=== PATIENT | female | born 1975 | race Caucasian/White ===

== ENCOUNTER 2022-05-11 15:33 | Emergency (ER) | payer OTHER, SELFPAY ==
[2022-05-11 15:44] VITALS: BP 159/89; PULSE 93; RESP 20; TEMP 37.7; O2SAT 95; BMI 36.5
--- NOTE | 2022-05-11 16:40 | ED_ITS ---
HPI - General Adult General Chief complaint: Back Injury/Pain Stated complaint: BACK PAIN - BACK LEFT AREA Time Seen by Provider: 05/11/22 16:18 Source: patient Mode of arrival: ambulatory Limitations: no limitations History of Present Illness HPI narrative: 46-year-old female coming in today complaining of left-sided mid back pain that started yesterday. She states that the pain came out of nowhere. Does not r adiate. It is worse with movement. She states that when the pain comes it causes her to feel nauseated but she has not vomited. She denies any fevers or chills. Appetite has been normal. She denies any increased urinary frequency or dysuria. No urinary urgency. She denies any constipation or diarrhea, states that she has daily bowel movements and they have been regular. She denies any blood in her urine. The pain does not radiate. Lying still does make it better however she still gets spasms that come and go. She was seen in the [place] [facility] this morning and was given hydrocodone which she states has not helped the pain whatsoever. She denies coughing or feeling short of breath. She denies the pain worsening with leaning over forward or backwards. Related Data Home Medications Medication Instructions Recorded Confirmed hydroxychloroquine PO 05/11/22 Previous Rx's Medication Instructions Recorded cyclobenzaprine 10 mg tablet 10 mg PO Q8H PRN muscle spasm #15 05/11/22 tabs ketorolac 10 mg tablet 10 mg PO TID 5 days #15 tabs 05/11/22 Allergies Allergy/AdvReac Type Severity Reaction Status Date / Time No Known Drug Allergies Allergy Verified 05/11/22 15:49 Review of Systems Status of ROS: Reports: 10 or more systems reviewed and unremarkable except as noted in History and below Exam Narrative: Exam Narrative: Well-nourished well-developed patient in no acute distress but is uncomfortable. Alert and oriented. Answers questions appropriately. Mood and affect are appropriate. Thoughts are goal oriented and rational. No tangential or magical thinking noted. Patient speaks in full sentences without needing to catch their breath. HEENT: Normocephalic atraumatic. Pupils are equally round reactive to light. Extraocular muscles are intact. Conjunctivae are moist without any icterus noted. Moist mucous membranes. Posterior pharynx is normal. Neck is soft without any lymphadenopathy or thyromegaly. No masses are appreciated. Cardiovascular: Heart is regular rate and rhythm S1 and S2 are present without any murmurs. Lungs: Clear to auscultation bilaterally no wheezes rhonchi or rales are appreciated. Patient takes deep breaths without any discomfort. Abdomen: Soft and nontender nondistended with normal bowel sounds. No guarding or rebound. No masses or organomegaly appreciated. She has no CVA tenderness. Extremities: Bilateral lower extremities are without edema. Normal DP and PT pulses. Skin: Well perfused without any obvious rashes. Back: Has normal appearance. There are no rashes, erythema or bruising noted. She has no tenderness to palpation over the cervical thoracic or lumbar spine. There is no point tenderness over the posterior chest wall over any rib. She has a small area tenderness on the left thoracic paraspinal musculature, this seems to be her most tender spot. Strength is 5/5 of the upper and lower extremities. Gait is normal. Const: Vital Signs, click to edit/add: Vital Signs - 24 hr 05/11/22 15:44 Temperature 99.9 F H Pulse Rate [Right Pulse Oximeter] 93 Respiratory Rate 20 Blood Pressure [Le ft Upper Arm] 159/89 H Pulse Oximetry 95 Oxygen Delivery Me thod Room Air Course Course Hospital Course: Labs were unremarkable, urinalysis unremarkable. IM Toradol helped her symptoms quite a bit. Vital Signs Vital signs: Initial Vital Signs Temperature 99.9 F H 05/11/22 15:44 Temperature Source Temporal Artery Scan 05/11/22 15:44 Pulse Rate 93 05/11/22 15:44 Respiratory Rate 20 05/11/22 15:44 Blood Pressure 159/89 H 05/11/22 15:44 Blood Pressure Mean 112 05/11/22 15:44 Blood Pressure Position Sitting 05/11/22 15:44 Pulse Oximetry 95 05/11/22 15:44 Oxygen Delivery Method 05/11/22 15:44 Vital Signs Temperature 99.9 F H 05/11/22 15:44 Pulse Rate 93 05/11/22 15:44 Respiratory Rate 20 05/11/22 15:44 Blood Pressure 159/89 H 05/11/22 15:44 Pulse Oximetry 95 05/11/22 15:44 Oxygen Delivery Method 05/11/22 15:44 Temperature 99.9 F H 05/11/22 15:44 Pulse Rate 93 05/11/22 15:44 Respiratory Rate 20 05/11/22 15:44 Blood Pressure 159/89 H 05/11/22 15:44 Pulse Oximetry 95 05/11/22 15:44 Oxygen Delivery Method 05/11/22 15:44 Medical Decision Making MDM Narrative Medical decision making narrative: 46-year-old female coming in today with thoracic back pain. This is likely musculoskeletal in nature. Differential diagnoses includes kidney stones, ho wever she has a normal UA and no urinary symptoms. Could also potentially be a pulmonary source such as pleurisy, PE or pneumothorax-however, without any respiratory symptoms, no tachypnea or hypoxia this would be very unlikely. At this time to treat with Toradol and Flexeril as needed we discussed returning if she develops vomiting, fever or worsening symptoms. Patient felt comfortable with this plan had no other questions. Lab Data Lab results reviewed: Yes I reviewed the patient's lab results Labs: Lab Results 05/11/22 05/11/22 05/11/22 Range/Units 16:35 16:46 16:46 WBC 11.73 H (4.50-11.00) K/uL RBC 4.28 (4.00-5.20) m/uL Hgb 13.2 (12.0-16.0) gm/dL Hct 38.9 (33.0-51.0) % MCV 91 (80-100) fL MCH 31 (26-34) pg MCHC 34 (32-36) gm/dL RDW Coeff of Tiffanie 12.5 (11.5-15.5) % Plt Count 226 (140-440) K/uL Neut % (Auto) 80.4 H (42.0-72.0) % Lymph % (Auto) 8.1 L (20-44) % Bucks % (Auto) 10.7 (0.0-11.0) % Eos % (Auto) 0.3 (0.0-7.0) % Baso % (Auto) 0.2 (0.0-3.0) % Neut # (Auto) 9.40 H (1.7-7.0) K/uL Lymph # (Auto) 1.00 (0.90-2.90) K/uL Bucks # (Auto) 1.30 H (0.00-0.90) K/UL Eos # (Auto) 0.00 (0.00-0.50) K/uL Baso # (Auto) 0.00 (0.00-0.30) K/uL Abs Immat Gran (auto) 0.03 (0.00-0.30) K/uL Sodium 137 (135-149) mmol/L Potassium 4.0 (3.6-5.1) mmol/L Chloride 102 (96-114) mmol/L Carbon Dioxide 26 (20-32) mmol/L BUN 12 (5-24) mg/dL Creatinine 0.7 (0.5-1.5) mg/dL Estimated Creat Clear 102.38 Estimated GFR 109 ml/min Glucose 120 H (60-115) mg/dL Calcium 9.6 (8.4-10.6) mg/dL Urine Color Yellow (Yellow) Urine Appearance Clear (Clear) Urine pH 6.0 (5.0-8.5) Ur Specific [place] >= 1.030 (1.000-1.030) Urine Protein Negative (Negative) Urine Glucose (UA) Negative (Negative) Urine Ketones Negative (Negative) Urine Blood Negative (Negative) Urine Nitrite Negative (Negative) Urine Bilirubin Negative (Negative) Urine Urobilinogen 0.2 (0.2-1.0) Ur Leukocyte Esterase Negative (Negative) Urine RBC 0-2 (0-2) Urine WBC 0-2 (0-5) Ur Squamous Epith Cells None (None-Few) Urine Bacteria None (None) Discharge Plan Discharge Clinical Impression: Thoracic back pain Patient Disposition: Home, Self-Care Condition: Stable Additional Instructions: Okay to use heat on sore area as needed. Take Toradol which is a pain medication, and Flexeril which is a muscle relaxer as needed. If you feel like you are getting worse instead of better, return to the ER. If you develop fever, shortness of breath or vomiting return to the ER. Prescriptions: New ketorolac 10 mg tablet 10 mg PO TID 5 Days Qty: 15 0RF cyclobenzaprine 10 mg tablet 10 mg PO Q8H PRN (Reason: muscle spasm) Qty: 15 0RF No Action hydroxychloroquine [Plaquenil] PO Follow Up/Referrals: Marilee Howard MD [Primary Care Provider] - Stand Alone Forms: [facility] Inst[facility]
[2022-05-11 16:49] LABS: Appearance Urine Clear (Clear); Bilirubin Urine Negative (Negative); Blood Urine Negative (Negative); Color Urine Yellow (Yellow); Glucose Urine Negative (Negative); Ketones Urine Negative (Negative); Leukocyte Esterase Urine Negative (Negative); Nitrite Urine Negative (Negative); Protein Urine Negative (Negative); Specific Gravity Urine >= 1.030 (1.000-1.030); Urobilinogen Urine 0.2 (0.2-1.0)
[2022-05-11 16:58] LABS: RBC Urine 0-2 (0-2)
[2022-05-11 16:59] LABS: WBC Urine 0-2 (0-5)
[2022-05-11 17:00] LABS: Basophils Percent Auto 0.2 % (0.0-3.0); Eosinophils Percent Auto 0.3 % (0.0-7.0); Hematocrit 38.9 % (33.0-51.0); Hemoglobin* 13.2 gm/dL (12.0-16.0); Immature Granulocytes Abs Auto 0.03 K/uL (0.00-0.30); Lymphocytes Percent Auto 8.1 % (20-44); Mean Corpuscular HGB Conc 34 gm/dL (32-36); Mean Corpuscular Hemoglobin 31 pg (26-34); Mean Corpuscular Volume 91 fL (80-100); Monocytes Percent Auto 10.7 % (0.0-11.0); Neutrophils Percent Auto 80.4 % (42.0-72.0); Platelet Count* 226 K/uL (140-440); RDW Coefficient of Variation % 12.5 % (11.5-15.5); Red Blood Count 4.28 m/uL (4.00-5.20); White Blood Count* 11.73 K/uL (4.50-11.00)
[2022-05-11] MEDS: KETOROLAC 30 MG/ML inj 60 MG IM (17:05)
[2022-05-11 17:08] LABS: Slide Review Reflex No
[2022-05-11 17:13] LABS: Chloride* 102 mmol/L (96-114); Sodium* 137 mmol/L (135-149)
[2022-05-11 17:16] LABS: Carbon Dioxide* 26 mmol/L (20-32); Creatinine* 0.7 mg/dL (0.5-1.5); Est. Creatinine Clearance* 102.38; Estimated Glomerular Filt Rate 109 ml/min
[2022-05-11 17:17] LABS: Blood Urea Nitrogen* 12 mg/dL (5-24); Calcium* 9.6 mg/dL (8.4-10.6); Glucose* 120 mg/dL (60-115)
== END 2022-05-11 18:14 | disposition home or self-care (01) ==
PROVIDERS: Emergency Provider Family Medicine
DX: M54.6 Pain in thoracic spine (principal)
CPT/HCPCS: 36415; 80048; 81001; 85025; 87086; 96372; 99283; 99284; J1885